=== PATIENT | male | born 1950 | race Two or more races ===

== ENCOUNTER 2025-04-12 17:53 | Emergency (ER) | payer MEDICARE, OTHER ==
[~2025-04-12] VITALS: Ht 157.5 cm; Wt 62.6 kg
--- NOTE | 2025-04-12 18:37 | ED.PDOC ---
Musculoskeletal HPI Comments A 74 year-old male presents to the ED with a chief complaint of L elbow pain with associated swelling as of X2 days ago S/P fall. Patient denies any bleeding to the area or head trauma. Patient further denies associated symptoms of fever, chills, general weakness, dizziness, migraine, or fatigue. Vital signs were stable on arrival. Chief Complaint: Upper Extremity Time Seen by MD: 18:29 Reviewed Notes: Nurses Notes, Medications, Allergies Allergies: Coded Allergies: NO KNOWN ALLERGIES (Unverified , 04/12/25) Home Meds Active Scripts Hydrocodone-Acetaminophen (Hydrocodone Bitartrate/AC 5-325 mg) 1 Tab Tab, 1 TAB PO Q6HP PRN, #20 TAB Prov:MAGDA GUTIERREZ PAC 04/12/25 Ibuprofen (Ibuprofen) 600 Mg Tab, 1 TAB PO Q6HP PRN, #30 TAB Prov:MAGDA GUTIERREZ PAC 04/12/25 Information Source: Patient Mode of Arrival: Ambulatory Location: Left Extremity Location: Elbow Timing: Days Prehospital treatment: None Severity: Moderate Pain: Moderate Hand Dominance: Right Mechanism: No Trauma Circumstances: Fall Onset of Symptoms: After Trauma Symptoms: Swelling, Pain DVT Risk Factors: NONE Associated signs and symptoms: Elbow pain Past Medical History PAST MEDICAL HISTORY: Denies Surgical History: Denies all surgeries Family History Family History: Reviewed,noncontributory to illness, No family hx of Cancer, No family hx of DM, No family hx of Heart jh, No family hx of HTN, No family hx ofKidney jh, No family hx of Liver jh, No family hx of Lung jh, No family hx of Stroke Social History Smoker: Non-Smoker Alcohol: Denies ETOH Use Drugs: Denies Drug Use Lives In: Home Constitutional: denies: chills, diaphoresis, fatigue, fever, malaise, sweats, weakness, others EENTM: denies: blurred vision, double vision, ear bleeding, ear discharge, ear drainage, ear pain, ear ringing, eye pain, eye redness, hearing loss, mouth pain, mouth swelling, nasal discharge, nose bleeding, nose congestion, nose pain, photophobia, tearing, throat pain, throat swelling, voice changes, others Respiratory: denies: cough, hemoptysis, orthopnea, SOB at rest, shortness of breath, SOB with excertion, stridor, wheezing, others Cardiovascular: denies: chest pain, dizzy spells, diaphoresis, Dyspnea on exertion, edema, irregular heart beat, left arm pain, lightheadedness, palpitations, PND, syncope, others Gastrointestinal: denies: abdomen distended, abdominal pain, blood streaked bowels, constipated, diarrhea, dysphagia, difficulty swallowing, hematemesis, melena, nausea, poor appetite, poor fluid intake, rectal bleeding, rectal pain, vomiting, others Genitourinary: denies: burning, dysuria, flank pain, frequency, hematuria, incontinence, penile discharge, penile sore, pain, testicle pain, testicle swelling, urgency, others Neurological: denies: dizziness, fainting, headache, left sided numbness, left sided weakness, numbness, paresthesia, pre-existing deficit, right sided numbness, right sided weakness, seizure, speech problems, tingling, tremors, weakness, others Musculoskeletal: reports: joint pain (Left elbow pain); denies: back pain, gout, joint swelling, muscle pain, muscle stiffness, neck pain, others Integumetry: denies: bruises, change in color, change in hair/nails, dryness, laceration, lesions, lumps, rash, wounds, others Allergic/Immunocompromised: denies: Difficulty Healing, Frequent Infections, Hives, Itching, others Hematologic/Lymphatic: denies: anemia, blood clots, easy bleeding, easy bruising, swollen glands, others Endocrine: denies: excessive hunger, excessive sweating, excessive thirst, excessive urination, flushing, intolerance to cold, intolerance to heat, unexplained weight gain, unexplained weight loss, others Psychiatric: denies: anxiety, bipolar disorder, depression, hopeless, panic disorder, schizophrenia, sleepless, suicidal, others All Other Systems: Reviewed and Negative Physical Exam General Appearance: Moderate Distress ([id number] distress due to left elbow concerns.), Normal HEENT: Normal ENT Inspection, Pharynx Normal, TMs Normal Neck: Full Range of Motion, Non-Tender, Normal, Normal Inspection Respiratory: Chest Non-Tender, Lungs Clear, No Accessory Muscle Use, No Respiratory Distress, Normal Breath Sounds Cardiovascular: No Edema, No JVD, No Murmur, No Gallop, Normal Peripheral Pulses, Regular Rate/Rhythm Breast Exam: Deferred Gastrointestinal: No Organomegaly, Non Tender, No Pulsatile Mass, Normal Bowel Sounds, Soft Genitalia: Deferred Pelvic: Deferred Rectal: Deferred Extremities: Other (Left elbow displays diffuse tenderness to palpation throughout the posterior aspect extending into the forearm. [id number] edema noted. Moderate to significant reduced range of motion. Distal neurovascularly intact.) Neurologic: Alert, No Motor Deficits, Normal Affect, Normal Mood, No Sensory Deficits Cerebellar Function: Normal Reflexes: Normal Skin: Dry, Normal Color, Warm Lymphatic: No Adenopathy Was a procedure done? Was a procedure done?: No Differential Diagnosis EXT Differential Diagnosis: Fracture, Sprain, Contusion, Strain X-Ray, Labs, Meds, VS Vital Signs Date Time Temp Pulse Resp B/P (MAP) Pulse Ox O2 Delivery O2 Flow Rate FiO2 04/12/25 19:29 67 16 98 Room Air 04/12/25 19:29 99.0 67 16 153/63 (93) 98 99.0 04/12/25 18:06 99.3 75 16 142/68 (92) 97 99.3 X-Ray, Labs, Meds, VS Comment All studies performed the ED were evaluated by me personally. Imaging studies confirmed a mildly displaced radial head fracture. Patient was put in a thumb spica splint and provided with a sling. Splint application was adequate at time of discharge. Advised to utilize pain medication as needed and follow up with his primary care provider in the next 3-5 days for re-evaluation and probable cast placement. Patient will be given our orthopedic department information as needed. Time of 1ST Reevaluation: 19:58 Reevaluation 1ST: Improved Consultation: PCP Patient Education/Counseling: Diagnosis, Treatment Family Education/Counseling: Diagnosis, Treatment, No Family Present Sepsis Recent Procedure: No On Antibiotic Therapy: No Respiratory Rate >20: No Heart Rate >90: No Temp<36 C (96.8 F) or >38.3 C: No SBP <90 or MAP <65 mmHG: No New Acute Mental Status Change: No Is the patient on CPAP, BIPAP,: No IV fluid given: No Departure 1 Departure Time of Disposition: 19:58 Impression: Primary Impression: Radial head fracture, closed Disposition: 01 HOME / SELF CARE / HOMELESS Condition: Stable Additional Instructions: Advised pain medication as needed and additionally, patient should follow up with the primary care provider in the next 3-5 days for re-evaluation and probable cast placement. If patient can not follow up with his primary care, please contact this facility at [phone] and asked for the orthopedic department run by Dr. eKnnedy for continued evaluation and management. e-Prescriptions Hydrocodone-Acetaminophen (Hydrocodone Bitartrate/AC 5-325 mg) 1 Tab Tab 1 TAB PO Q6HP PRN, #20 TAB Prov: MAGDA GUTIERREZ PAC 04/12/25 Ibuprofen (Ibuprofen) 600 Mg Tab 1 TAB PO Q6HP PRN, #30 TAB Prov: MAGDA GUTIERREZ PAC 04/12/25 Discharged With: Self, Friend Critical Care Note Critical Care Time?: No Stability Stability form required: No Heart Score Heart Score: Heart Score Response (Comments) Value History N/A 0 EKG N/A 0 Age N/A 0 Risk Factors N/A 0 Troponin N/A 0 Total 0 I personally scribed for MAGDA GUTIERREZ PAC ([email or web address]) on 04/12/25 at 18:37. E lectronically submitted by Rebeka Gallagher ([facility]). MAGDA GUTIERREZ PAC Apr 12, 2025 18:37
[2025-04-12 19:29] VITALS: BP 153/63; PULSE 67; RESP 16; TEMP 99; O2SAT 98
[2025-04-12] MEDS: KETOROLAC TROMETH 60MG/2ML VIAL IM ONE (19:37)
--- NOTE | 2025-04-12 19:37 | DVH ---
CLINICAL INDICATION: Fall/trauma TECHNIQUE: 2 radiographic views of the left humerus were obtained. Comparison: None FINDINGS/IMPRESSION: There is cortical step-off over the radial head. Recommend correlation with point tenderness for pos sible mildly displaced fracture. No fracture of the humerus.
--- NOTE | 2025-04-12 19:39 | DVH ---
CLINICAL INDICATION: Fall/trauma TECHNIQUE: 4 radiographic views of the left forearm were obtained. Comparison: None FINDINGS/IMPRESSION: There is radial head cortical step-off. Recommend correlation with point tenderness for mildly displ aced fracture. May consider dedicated elbow radiograph for further evaluation. No dislocation.
[2025-04-12] MEDS ORDERED: HYDR-4902 PO (20:00)
[2025-04-12] MEDS ORDERED: IBUP-1454 PO (20:00)
== END 2025-04-12 21:04 | disposition home or self-care (01) ==
LOC: ER 17:53
DX: S52.122A Displaced fracture of head of left radius, initial encounter for closed fracture (principal); W18.39XA Other fall on same level, initial encounter; Y93.89 Activity, other specified; Y92.89 Other specified places as the place of occurrence of the external cause; Y99.8 Other external cause status
CPT/HCPCS: 29105; 73060; 73090; 96372; 99284; J1885